=== PATIENT | female | born 1975 | race African-American/Black ===

== ENCOUNTER → 2019-01-04 | Outpatient (CLI) | payer MEDICARE ==
[~2019-01-04] MED LIST: REGADENOSON 0.4 MG/5 ML SYR IV ONE
--- NOTE | 2019-01-05 11:21 | Myoview Stress Test ---
DATE OF STUDY: 01/04/2019 07:27:00 Stress Test - Treadmill ONLY PROCEDURE TITLE: Lexiscan nuclear stress test. INDICATION: Dyspnea. TECHNIQUE: The patient was given 11 mCi of Myoview and resting images were obtained in the horizontal long axis, vertical long axis, and short axis. The patient was then hooked up to the EKG machine and Lexiscan was infused over 15 seconds. During Lexiscan infusion, the patient had no chest pain and no shortness of breath. Immediately after completion of Lexiscan infusion, the patient was given 33 mCi of Myoview. Stress images were obtained 30 minutes after completion of Lexiscan infusion. Stress images were obtained in the horizontal long axis, vertical long axis, and short axis. RESULTS: 1. The resting EKG demonstrated normal sinus rhythm with nonspecific ST and T-wave changes. 2. There were no symptoms and no EKG changes during Lexiscan infusion. 3. There was normal perfusion to all segments of the myocardium in both stress and rest. 4. The images could not be gated and no ejection fraction could be obtained. CONCLUSIONS: Normal perfusion to all segments of the myocardium with no evidence of ischemia. Eusebio Colon MD [facility] /[id number]
== END ==
LOC: DX 07:08
PROVIDERS: ATTEND Internal Medicine Cardiovascular Disease
DX: R07.2 Precordial pain (principal)
CPT/HCPCS: 78452; 93017; A9502; J2785

== ENCOUNTER → 2024-08-09 | Outpatient (REF) | payer MEDICARE | LOC: DX 09:39 | PROVIDERS: ATTEND Nurse Practitioner Family | DX: R13.10 Dysphagia, unspecified (principal); Z98.84 Bariatric surgery status | CPT/HCPCS: 74220; 81025 ==